=== PATIENT | male | born 1955 | race Caucasian/White ===

== ENCOUNTER 2020-06-28 10:42 | Outpatient (CLI) | payer BC ==
[2020-06-28 18:20] LABS: SARS-CoV-2 PCR by NAA Not Detected (NotDetected)
== END 2020-06-28 10:43 | disposition home or self-care (01) ==
LOC: CSHLAB 10:42
PROVIDERS: ATTEND Surgery
DX: Z20.822 Contact with and (suspected) exposure to COVID-19 (principal); K40.90 Unilateral inguinal hernia, without obstruction or gangrene, not specified as recurrent; D68.51 Activated protein C resistance
CPT/HCPCS: 87635; U0003; U0005

== ENCOUNTER 2020-07-01 07:26 | Day surgery (SDC) | payer BC ==
[2020-06-30 13:01] VITALS: BMI 30.7
[2020-07-01] MEDS ORDERED: Lidocaine 1% MPF 2 ML VIAL ONE (07:44)
[2020-07-01] MEDS ORDERED: Heparin 5,000 UNITS/ML VIAL ONE (08:01)
[2020-07-01] MEDS ORDERED: Bupivacaine PF 0.5% 30 ML VIAL ONE (09:05)
[2020-07-01] MEDS ORDERED: EPINEPHrine 1 MG/ML AMP ONE (09:05)
[2020-07-01] MEDS ORDERED: Midazolam HCl 2 mg/2 ml Vial ONE ×2 (09:16→09:22)
[2020-07-01] MEDS ORDERED: PROPOFOL 20 ML ONE (09:22)
[2020-07-01] MEDS ORDERED: Fentanyl 100 MCG/2 ML VIAL ONE (09:22)
[2020-07-01] MEDS ORDERED: Ketorolac Tromethamine 30 MG/ML VIAL ONE (09:24)
[2020-07-01] MEDS ORDERED: Lidocaine 1% PF 5 ML VIAL ONE (10:10)
[2020-07-01] MEDS ORDERED: Dexamethasone 4 mg/ml Vial ONE (10:10)
[2020-07-01] MEDS ORDERED: Ondansetron PF 4 MG/2 ML Vial ONE (10:10)
[2020-07-01] MEDS ORDERED: Glycopyrrolate 0.2 MG/ML 5 ML SYRINGE ONE (10:10)
[2020-07-01] MEDS ORDERED: HYDROcodone/Acetaminophen 5/325 mg Tablet PO PRN (11:21)
== END 2020-07-01 13:25 | disposition home or self-care (01) ==
LOC: CSHSDC 07:26
PROVIDERS: ATTEND Surgery
PROC: 0YU54JZ Supplement Right Inguinal Region with Synthetic Substitute, Percutaneous Endoscopic Approach (ICD-10-PCS; principal; 2020-07-01)
DX: K40.90 Unilateral inguinal hernia, without obstruction or gangrene, not specified as recurrent (principal); D68.51 Activated protein C resistance; Z79.82 Long term (current) use of aspirin; Z79.899 Other long term (current) drug therapy; E78.00 Pure hypercholesterolemia, unspecified
CPT/HCPCS: J0171; J0690; J1100; J1644; J1885; J2250; J2405; J2704; J3010; J3490; S0020

== ENCOUNTER 2022-04-12 18:59 | Emergency (ER) | payer BC ==
[2022-04-12 19:31] LABS: #Eosinphils 0.6 10x3/uL (0.0-0.5); #Monocytes 0.8 10x3/uL (0.0-1.1); #Neutrophils 3.8 10x3/uL (1.5-8.4); %Basophils 0.5 % (0.0-2.0); %Eosinophils 7.7 % (0.0-6.0); %Lymphocytes 31.5 % (18.0-47.0); %Monocytes 10.3 % (0.0-10.0); %Neutrophils 49.7 % (40.0-75.0); Mean Corpuscular HGB CONC 34.1 g/dL (32.0-36.0); Mean Corpuscular Hemoglobin 30.2 pg (27.0-33.0); Mean Corpuscular Volume 88.7 fl (81.2-95.1); Platelet Count 308 10x3/uL (150-450); RBC Distribution Width 12.6 % (11.5-14.5); Red Blood Cell (RBC) Count 4.96 10x6/uL (4.32-5.72); White Blood Cell (WBC) Count 7.6 10x3/uL (3.5-10.5)
[2022-04-12 19:43] LABS: ALT (SGPT) 26 U/L (8-55); AST (SGOT) 26 U/L (5-34); Albumin 4.4 g/dL (3.4-4.8); Alkaline Phosphatase 51 U/L (40-110); Anion Gap 15 mmol/L (10-20); BUN (Urea Nitrogen) 15 mg/dL (8.4-25.7); Bilirubin, Total 0.5 mg/dL (0.2-1.2); Calc. Creatinine Clearance 0 mL/min (70-130); Calcium 9.9 mg/dL (7.8-10.44); Carbon Dioxide 23 mmol/L (23-31); Chloride 106 mmol/L (98-107); Estimated GFR 71; Globulin 3.5 g/dL (2.4-3.5); Glucose 143 mg/dL (80-115); Protein, Total 7.9 g/dL (5.8-8.1); Sodium 140 mmol/L (136-145)
[2022-04-12] MEDS ORDERED: PROPOFOL 20 ML ONE (20:14)
== END 2022-04-12 21:48 | disposition home or self-care (01) ==
LOC: CSHERS 18:59
DX: I48.91 Unspecified atrial fibrillation (principal)
CPT/HCPCS: 71045; 80053; 84484; 85025; 92960; 93005; J2704